=== PATIENT | male | born 1980 | race Caucasian/White ===

== ENCOUNTER 2019-01-21 08:57 | Inpatient (IN) | payer OTHER ==
[~2019-01-21] VITALS: Ht 167.6 cm; Wt 74.8 kg
[2019-01-21] MEDS ORDERED: RENVELA (09:13)
[2019-01-21] MEDS ORDERED: DIPH50CA37 PO (09:13)
[2019-01-21] MEDS ORDERED: CLON0.1T PO (09:13)
[2019-01-21] MEDS ORDERED: NIFE10CA2 PO (09:13)
[2019-01-21] MEDS ORDERED: ASPI81TA31 PO (09:13)
[2019-01-21] MEDS ORDERED: diphenhydrAMINE 50 MG/1 ML VIAL IV ONE ×2 (09:30→10:15)
[2019-01-21] MEDS ORDERED: HYDROMORPHONE 1 MG/1 ML DISP.SYRIN IV ONE ×2 (09:30→10:15)
[2019-01-21] MEDS ORDERED: ONDANSETRON 4 MG/2 ML VIAL IV ONE (09:30)
[2019-01-21] MEDS ORDERED: IV NORMAL SALINE 500 ML BAG IV ONE (09:30)
[2019-01-21] MEDS ORDERED: HYDROMORPHONE 2 MG/1 ML DISP.SYRIN ONE (09:33)
[2019-01-21] MEDS ORDERED: ONDANSETRON 4 MG/2 ML VIAL ONE (09:34)
[2019-01-21 09:35] LABS: BASOPHILS % (AUTO) 0.4 % (0.0-2.0); EOSINOPHILS # (AUTO) 0.1 K/uL (0.0-0.7); EOSINOPHILS % (AUTO) 2.2 % (0.0-7.0); HEMATOCRIT 27.2 % (36.7-47.1); LYMPHOCYTES # (AUTO) 0.3 K/uL (20.0-40.0); LYMPHOCYTES % (AUTO) 4.7 % (20.5-51.5); MEAN CORPUSCULAR HEMOGLOBIN 30.2 uug (23.8-33.4); MEAN CORPUSCULAR HGB CONC 33 g/dL (32.5-36.3); MEAN CORPUSCULAR VOLUME 91.5 fL (73.0-96.2); MONOCYTES # (AUTO) 0.6 K/uL (2.0-10.0); MONOCYTES % (AUTO) 9.6 % (0.0-11.0); NEUTROPHILS # (AUTO) 5.3 K/uL (1.8-8.9); NEUTROPHILS % (AUTO) 83.1 % (38.5-71.5); PLATELET COUNT (AUTO) 139 K/uL (152-348); RED BLOOD CELL COUNT(AUTO) 2.97 MIL/uL (4.06-5.63); WHITE BLOOD COUNT (AUTO) 6.4 K/uL (3.6-10.2)
[2019-01-21] MEDS ORDERED: diphenhydrAMINE 50 MG/1 ML VIAL ONE ×2 (09:40→10:10)
[2019-01-21 09:44] LABS: CARBON DIOXIDE 26 mmol/L (21-32); CHLORIDE 94 mmol/L (98-107); GLUCOSE 93 mg/dL (74-106); POTASSIUM 5.4 mmol/L (3.5-5.1); UREA NITROGEN, BLOOD 36 mg/dL (7-18)
[2019-01-21 09:45] LABS: CREATININE 11.2 mg/dL (0.6-1.3)
--- NOTE | 2019-01-21 09:48 | NUR ---
pt is in room #1b. dr Gerardo evaluated the pt.
[2019-01-21 09:57] LABS: ALANINE AMINOTRANSFERASE 25 U/L (16-63); ALKALINE PHOSPHATASE 82 U/L (50-136); ASPARTATE AMINOTRANSFERASE 21 U/L (15-37); BILIRUBIN,DIRECT 0.2 mg/dL (0.0-0.2); BILIRUBIN,TOTAL 0.3 mg/dL (0.2-1.0)
[2019-01-21] MEDS ORDERED: HYDROMORPHONE 1 MG/1 ML DISP.SYRIN ONE (10:10)
[2019-01-21] MEDS ORDERED: LABETALOL HCL 100 MG/20 ML VIAL IV ONE (10:15)
[2019-01-21] MEDS ORDERED: LABETALOL HCL 100 MG/20 ML VIAL ONE (10:18)
[2019-01-21] MEDS ORDERED: HYDR100T27 PO (10:48)
[2019-01-21] MEDS ORDERED: ATOR20TA PO (10:48)
[2019-01-21] MEDS ORDERED: VIT1TABL46 PO (10:48)
[2019-01-21] MEDS ORDERED: DICY20TA11 PO (10:48)
[2019-01-21] MEDS ORDERED: ISOS30TA6 PO (10:48)
[2019-01-21] MEDS ORDERED: BENA20TA9 PO (10:48)
[2019-01-21] MEDS ORDERED: ONDA8TAB6 PO (10:48)
[2019-01-21] MEDS ORDERED: NIFE90TA38 PO (10:48)
[2019-01-21] MEDS ORDERED: TRAM50TA2 PO (10:48)
[2019-01-21] MEDS ORDERED: LABETALOL HCL 100 MG/20 ML VIAL IV PRN (11:00)
--- NOTE | 2019-01-21 11:05 | NUR ---
pt was transfered to room #319. report was given to ornamental iron worker apprentice.
--- NOTE | 2019-01-21 11:15 | NUR ---
RECEIVED FROM ER BP 205/141--93--18..E3INT=37% ON ROOM AIR. PT. C/O CHEST AND ABD. PAIN. RECHECK OF V/S= BP 203/134-96-20 DR. PRETTY HERE--NOTIFIED OF BP ORDERED NITROPASTE. 1120 NITRO PASTE 2 INCHES APPLIED TO CHEST. 1140 BP 239/135--96--20 1145 RECHECK 214/123--97--20 95% 1155 BP 239/135--94--20. PT. C/O CHEST PAIN DR. MATIAS CALLED FOR ADDITIONAL ORDERS 1200 APRESOLINE 100 MG GIVEN PO--PER ORDER 1210 DR. MATIAS CALLED BP 209/137--97--20 PT. VERY ANXIOUS ASKING FOR DILAUDID IV [STATES THEY ALWAYS GIVE ME DILAUDID WHEN I NEED IT.] 1220 BENADRYL 50 MG GIVEN IV PER ORDER. PT. STILL C/O CHEST PAIN AND ASKING FOR DILAUDID DR. MATIAS NOTIFIED NITROGLYCERIN GIVEN PER ORDER SL. PT. TRANSFERRED TO CCU. EKG DONE AT 1200 AND O2 AT 4L STARTED. REPORT GIVEN TO CCU MAURO
[2019-01-21] MEDS ORDERED: EPOETIN ALFA 10,000 UNITS/ML VIAL SQ ONE (11:30)
[2019-01-21] MEDS ORDERED: NITROGLYCERIN OINT 1 GM PACKET TP PRN (11:45)
[2019-01-21 12:00] VITALS: BP 203/134
[2019-01-21] MEDS ORDERED: hydrALAZINE HCL 50 MG TABLET PO STA (12:07)
[2019-01-21] MEDS ORDERED: diphenhydrAMINE 50 MG/1 ML VIAL IV PRN (12:30)
[2019-01-21 12:40] VITALS: BP 194/142
--- NOTE | 2019-01-21 12:40 | NUR ---
Spoke with Dr. Landeros and gave him report orders for nitrogycerin drip received.
[2019-01-21] MEDS ORDERED: NITROGLYCERIN 0.4 MG/TAB BOTTLE SL PRN (12:45)
--- NOTE | 2019-01-21 12:45 | NUR ---
At this time pt. removing himself from monitoring, blood pressure cuff and threatening to leave AMA if Dr. does not agree to given him dilaudid as other hospital do. Dr. Landeros informed and pt. persuaded to stay educated on consequences of not treating high SBP.
--- NOTE | 2019-01-21 12:47 | NUR ---
RECEIVING PATIENT POST RAPID RESPONSE. HYPERTENSION, AND C/O CHEST PAIN. 1 NITRO GIVEN ON MEDICAL FLOOR 2ND DOSE GIVEN IN CCU. RECEIVING REPORT FROM ANDRE WADE.
--- NOTE | 2019-01-21 12:55 | NUR ---
Orders for dilaudid 1 mg IV Q3H received from attending physician.
[2019-01-21] MEDS ORDERED: NITROGLYCERIN IV 250 ML IV PRN (13:00)
[2019-01-21] MEDS ORDERED: hydrALAZINE HCL 50 MG TABLET PO SCH (13:00)
--- NOTE | 2019-01-21 13:00 | NUR ---
Patient informed that order dilaudid orders and at this time demanding medication to be higher dose and to be ready at this very moment. Patient educated on phamacy verification, before medication administration. Patient one more time removing himself from monitoring threatening to leave AMA to other hospitals that will as stated by Him "will treat my pain and dialyse me only" , patient also stating that He's paying for and nurses salary but he's not receiving the proper treatment. Patient using obscene language in Welsh to express his statements. Braider Operator notified.
--- NOTE | 2019-01-21 13:05 | NUR ---
Upon arrival 2nd dose of nitroglycerin sublingual given, but patient refusing medication. Vehicle Technician at bedside and she was able to convince him to take the second dose of nitroglycerin drip.
[2019-01-21] MEDS ORDERED: HYDROMORPHONE 1 MG/1 ML DISP.SYRIN IV PRN (13:15)
--- NOTE | 2019-01-21 13:30 | NUR ---
Attending physician notified that pt. left AMA despite been educated on HTN crisis. Wireless Sales Representative informed as well.
== END 2019-01-21 13:20 | disposition left against medical advice (07) | DRG 241 ==
LOC: ER 08:58 → TELE3 10:41 → CCU 12:39
PROVIDERS: ADMIT Internal Medicine; ATTEND Internal Medicine
DX: K29.70 Gastritis, unspecified, without bleeding (principal); I13.2 Hypertensive heart and chronic kidney disease with heart failure and with stage 5 chronic kidney disease, or end stage renal disease; D69.6 Thrombocytopenia, unspecified; I24.9 Acute ischemic heart disease, unspecified; N18.6 End stage renal disease; E87.1 Hypo-osmolality and hyponatremia; E87.5 Hyperkalemia; K21.9 Gastro-esophageal reflux disease without esophagitis; Z99.2 Dependence on renal dialysis; I44.4 Left anterior fascicular block; L29.9 Pruritus, unspecified; I70.0 Atherosclerosis of aorta; R07.2 Precordial pain; D53.9 Nutritional anemia, unspecified; Z95.810 Presence of automatic (implantable) cardiac defibrillator; Z79.899 Other long term (current) drug therapy; Z88.0 Allergy status to penicillin; Z79.82 Long term (current) use of aspirin; I50.9 Heart failure, unspecified
CPT/HCPCS: 36415; 70030-TC; 71045; 83690; 85025; 85730; 93005; 94640; A4663; G0378; J1170; J1200; J2405; J3490; J7030; J7040

== ENCOUNTER 2019-01-28 11:20 | Inpatient (IN) | payer OTHER ==
[2019-01-28] VITALS (8 sets, daily range): BP systolic 171–208; BP diastolic 98–139
[~2019-01-28] VITALS: Ht 167.6 cm; Wt 74.4 kg
[~2019-01-28 11:20] MED LIST: ASPI81TA31 PO; ATOR20TA PO; BENA20TA9 PO; CLON0.1T PO; DICY20TA11 PO; DIPH50CA37 PO; HYDR100T27 PO; ISOS30TA6 PO; NIFE90TA38 PO; ONDA8TAB6 PO; TRAM50TA2 PO; VIT1TABL46 PO
[2019-01-28] MEDS ORDERED: HYDROMORPHONE 1 MG/1 ML DISP.SYRIN IV ONE ×3 (11:45→14:00)
[2019-01-28] MEDS ORDERED: ONDANSETRON 4 MG/2 ML VIAL IV ONE ×2 (11:45→13:00)
--- NOTE | 2019-01-28 11:46 | NUR ---
PT IS IN ROOM #2A. DR HUGHES EVALUATED THE PT.
[2019-01-28 11:54] LABS: BASOPHILS % (AUTO) 0.5 % (0.0-2.0); EOSINOPHILS # (AUTO) 0.2 K/uL (0.0-0.7); EOSINOPHILS % (AUTO) 3.5 % (0.0-7.0); HEMATOCRIT 28.7 % (36.7-47.1); HEMOGLOBIN 9.5 g/dL (12.5-16.3); LYMPHOCYTES # (AUTO) 0.3 K/uL (20.0-40.0); LYMPHOCYTES % (AUTO) 5.5 % (20.5-51.5); MEAN CORPUSCULAR HEMOGLOBIN 30.1 uug (23.8-33.4); MEAN CORPUSCULAR HGB CONC 33 g/dL (32.5-36.3); MEAN CORPUSCULAR VOLUME 90.6 fL (73.0-96.2); MONOCYTES # (AUTO) 0.5 K/uL (2.0-10.0); MONOCYTES % (AUTO) 9.6 % (0.0-11.0); NEUTROPHILS # (AUTO) 4.3 K/uL (1.8-8.9); NEUTROPHILS % (AUTO) 80.9 % (38.5-71.5); PLATELET COUNT (AUTO) 198 K/uL (152-348); RED BLOOD CELL COUNT(AUTO) 3.17 MIL/uL (4.06-5.63); WHITE BLOOD COUNT (AUTO) 5.4 K/uL (3.6-10.2)
[2019-01-28 12:04] LABS: POTASSIUM 5.5 mmol/L (3.5-5.1)
[2019-01-28 12:05] LABS: CREATININE 12.2 mg/dL (0.6-1.3)
[2019-01-28 12:10] LABS: BILIRUBIN,DIRECT 0.1 mg/dL (0.0-0.2); BILIRUBIN,TOTAL 0.3 mg/dL (0.2-1.0); TOTAL PROTEIN, SERUM 7.2 g/dL (6.4-8.2)
[2019-01-28] MEDS ORDERED: ASPIRIN 325 MG TABLET PO ONE (12:15)
[2019-01-28] MEDS ORDERED: HYDROMORPHONE 1 MG/1 ML DISP.SYRIN ONE ×3 (12:23→14:05)
[2019-01-28] MEDS ORDERED: ONDANSETRON 4 MG/2 ML VIAL ONE ×2 (12:23→12:54)
[2019-01-28] MEDS ORDERED: hydrALAZINE HCL 20 MG/1 ML VIAL IV ONE ×2 (12:30→14:00)
[2019-01-28] MEDS ORDERED: hydrALAZINE HCL 20 MG/1 ML VIAL ONE ×2 (12:42→14:05)
[2019-01-28] MEDS ORDERED: ASPIRIN 325 MG TABLET ONE (12:44)
[2019-01-28] MEDS ORDERED: diphenhydrAMINE 50 MG/1 ML VIAL ONE (13:21)
[2019-01-28] MEDS ORDERED: diphenhydrAMINE 50 MG/1 ML VIAL IV ONE (13:30)
[2019-01-28] MEDS ORDERED: LABETALOL HCL 100 MG/20 ML VIAL ONE (13:36)
[2019-01-28] MEDS ORDERED: LABETALOL HCL 100 MG/20 ML VIAL IV ONE (13:45)
--- NOTE | 2019-01-28 14:03 | NUR ---
PT IS IN BED. NO S/S OF ACUTE DISTRESS AT THIS TIME. CONTINUE TO MONITOR THE PT.
[2019-01-28] MEDS ORDERED: ONDANSETRON 4 MG/2 ML VIAL IV PRN (14:30)
[2019-01-28] MEDS ORDERED: NITROGLYCERIN 0.4 MG/TAB BOTTLE SL PRN (14:30)
[2019-01-28] MEDS ORDERED: Z GUARD REMEDY PASTE 57 GM TUBE TOP PRN (14:30)
[2019-01-28] MEDS ORDERED: NIFEdipine XL 30 MG TABSR PO SCH (14:30)
[2019-01-28] MEDS ORDERED: HYDROCODONE/APAP 5-325MG TABLET PO PRN (14:30)
[2019-01-28] MEDS ORDERED: ACETAMINOPHEN 325 MG TABLET PO PRN (14:30)
[2019-01-28] MEDS ORDERED: MAGNESIUM HYDROXIDE 30 ML LIQUID UDC PO PRN (14:30)
[2019-01-28] MEDS ORDERED: NIFEdipine XL 30 MG TABSR PO ONE (14:31)
--- NOTE | 2019-01-28 15:45 | NUR ---
Full telephone SBAR report received by MAURO Salinas.
--- NOTE | 2019-01-28 16:01 | NUR ---
Pt received from ER. VSS wnl. Alert and oriented. Addendum: 01/28/19 at 1751 by SAEED MENDIOLA RN Pt noted to be tachy HR 120's upon admission. already aware. Addendum: 01/28/19 at 1844 by SAEED MENDIOLA RN Disregard VSS wnl (previous note). Pt with SBP 170's upon admission. already aware.
--- NOTE | 2019-01-28 16:13 | NUR ---
REPORT WAS GIVEN TO TETRYL BLENDER OPERATOR. PT WAS TRANSFERED TO CCU ROOM #4.
[2019-01-28] MEDS ORDERED: diphenhydrAMINE 50 MG/1 ML VIAL IV PRN (16:45)
[2019-01-28] MEDS: MORPHINE SULFATE 2 MG/1 ML DISP.SYRIN IV PRN ×2 (16:51→19:34)
[2019-01-28] MEDS ORDERED: CLONIDINE HCL 0.2 MG TABLET PO SCH (17:00)
[2019-01-28] MEDS ORDERED: CLONIDINE HCL 0.1 MG TABLET PO SCH (17:00)
[2019-01-28] MEDS ORDERED: DICYCLOMINE HCL 20 MG TABLET PO SCH (17:00)
[2019-01-28] MEDS ORDERED: hydrALAZINE HCL 20 MG/1 ML VIAL IV PRN (19:15)
--- NOTE | 2019-01-28 19:30 | NUR ---
Report received. Patient is MICAH status. AAO speaks mostly Divehi but able to communicate needs with few words of Guamanian. Scratching all over. "Itchy, itchy!" Patient c/o chest and abdominal pain 06/17. Informed that Benadryl was given at almost 5 pm ."Dilaudid, Dilaudid!" patient states. Informed he's on Morphine IV and medication will be given according to doctor's order. Respirations regular non labored. Skin warm and dry. Seen by Dr. Kraft. Ordered CT of abdomen, but no Dilaudid.
--- NOTE | 2019-01-28 19:34 | NUR ---
New IV inserted to ROSARIO; previous IV clotted. Medicated with Morphine IV.
--- NOTE | 2019-01-28 19:59 | NUR ---
C/o nausea. Medicated with Zofran IV.
--- NOTE | 2019-01-28 20:13 | NUR ---
Hydralazine 10 mg IV given. GQ=244/94. Patient denies headaches or dizziness. Monitored closely.
--- NOTE | 2019-01-28 20:35 | NUR ---
Dr. Kraft notified that patient remains hypertensive and with generalized itchiness and Benadryl is not due till 2300. No further medications for now as per MD until CT scan of abdomen is completed and resulted.
[2019-01-28] MEDS ORDERED: NIFEdipine XL 90 MG TABSR PO STA (20:42)
--- NOTE | 2019-01-28 20:50 | NUR ---
Spoke to Dr. Kraft again; patient remains hypertensive and patient uttering "Nifidipine"
--- NOTE | 2019-01-28 20:51 | NUR ---
Nifedipine XL [address] byrne tech Hugo aware of CT order.
[2019-01-28] MEDS ORDERED: ATORVASTATIN 20 MG TABLET PO SCH (21:00)
--- NOTE | 2019-01-28 21:30 | NUR ---
To CT scan with continuous monitoring.
--- NOTE | 2019-01-28 21:50 | NUR ---
Back from CT; NAD noted but continues to scratch all over. Removing monitor leads and dressing to R subclavian Jesus cath. Patient advised.
[2019-01-28] MEDS ORDERED: hydrALAZINE HCL 50 MG TABLET PO SCH (22:00)
[2019-01-28] MEDS ORDERED: hydrALAZINE HCL 25 MG TABLET PO SCH (22:00)
--- NOTE | 2019-01-28 22:09 | NUR ---
Patient very agitated, restless, continue to scratch all over, threatening to leave despite explanation. "Doctor no good!" "I'm itchy, itchy!" Remains hypertensive; advised appropriately. Took po meds Lipitor and Hydralazine (Patient was kept NPO for CT procedure) Drum Tender notified. Results of CT scan called to Dr. Kraft; informed of patient's condition and agitation. MD stated no more Benadryl but ordered Morphine Q6H for pain. Also informed of patient wanting to leave against medical advice.
--- NOTE | 2019-01-28 22:10 | NUR ---
Adhesive Primer Maria R and Croatian speaking night guard here to help as adult secondary education instructor. Patient informed of MD's orders of no more Benadryl. Patient dressed up and wants to leave the hospital. Refused to sign appropriate document for leaving against medical advice.
--- NOTE | 2019-01-28 22:20 | NUR ---
Patient left CCU ambulatory against medical advice.
[2019-01-29] MEDS ORDERED: ASPIRIN 81 MG TAB.CHEW PO SCH (09:00)
[2019-01-29] MEDS ORDERED: ISOSORBIDE MONONITRATE 30 MG TAB.SR.24H PO SCH (09:00)
[2019-01-29] MEDS ORDERED: NIFEdipine XL 90 MG TABSR PO SCH (09:00)
[2019-01-29] MEDS ORDERED: BENAZEPRIL HCL 10 MG TABLET PO SCH (09:00)
[2019-01-29] MEDS ORDERED: BENAZEPRIL HCL 20 MG TABLET PO SCH (09:00)
--- NOTE | 2019-02-03 07:38 | NUR ---
INFORMATION SENT: ROMARIO TINOCO INSURANCE NAME[facility] FAX NUMBER: FAX SENT
== END 2019-01-28 22:20 | disposition left against medical advice (07) | DRG 190 ==
LOC: ER 11:20 → CCU 15:26
DX: I21.4 Non-ST elevation (NSTEMI) myocardial infarction (principal); E87.1 Hypo-osmolality and hyponatremia; I12.0 Hypertensive chronic kidney disease with stage 5 chronic kidney disease or end stage renal disease; N18.6 End stage renal disease; E87.5 Hyperkalemia; Z99.2 Dependence on renal dialysis; I51.7 Cardiomegaly; Z95.810 Presence of automatic (implantable) cardiac defibrillator; D64.9 Anemia, unspecified; Z79.899 Other long term (current) drug therapy; Z79.82 Long term (current) use of aspirin; R10.9 Unspecified abdominal pain; Z76.5 Malingerer [conscious simulation]
CPT/HCPCS: 36415; 70030-TC; 71045; 83605; 83690; 85025; 93005; 93307; A4663; G0378; J0360; J1170; J1200; J2270; J2405; J3490

== ENCOUNTER 2019-02-04 16:00 | Emergency (ER) | payer OTHER ==
[~2019-02-04] VITALS: Ht 170.2 cm; Wt 74.1 kg
[2019-02-04] MEDS ORDERED: ONDANSETRON ODT 4 MG TAB.RAPDIS SL ONE (16:15)
--- NOTE | 2019-02-04 16:20 | NUR ---
PT IS IN ROOM #2A. DR HUTCHINS EVALUATED THE PT.
[2019-02-04 16:25] LABS: BASOPHILS % (AUTO) 0.5 % (0.0-2.0); EOSINOPHILS # (AUTO) 0.1 K/uL (0.0-0.7); EOSINOPHILS % (AUTO) 2.2 % (0.0-7.0); HEMATOCRIT 27.9 % (36.7-47.1); HEMOGLOBIN 9.2 g/dL (12.5-16.3); LYMPHOCYTES # (AUTO) 0.4 K/uL (20.0-40.0); LYMPHOCYTES % (AUTO) 5.4 % (20.5-51.5); MEAN CORPUSCULAR HGB CONC 33 g/dL (32.5-36.3); MEAN CORPUSCULAR VOLUME 90.6 fL (73.0-96.2); MONOCYTES # (AUTO) 0.8 K/uL (2.0-10.0); MONOCYTES % (AUTO) 12.5 % (0.0-11.0); NEUTROPHILS # (AUTO) 5.2 K/uL (1.8-8.9); NEUTROPHILS % (AUTO) 79.4 % (38.5-71.5); PLATELET COUNT (AUTO) 219 K/uL (152-348); RED BLOOD CELL COUNT(AUTO) 3.08 MIL/uL (4.06-5.63); WHITE BLOOD COUNT (AUTO) 6.5 K/uL (3.6-10.2)
[2019-02-04] MEDS ORDERED: ONDANSETRON ODT 4 MG TAB.RAPDIS ONE (16:25)
[2019-02-04 16:39] LABS: POTASSIUM 4.9 mmol/L (3.5-5.1)
[2019-02-04 16:43] LABS: CREATININE 12.2 mg/dL (0.6-1.3)
[2019-02-04 16:44] LABS: BILIRUBIN,DIRECT 0.1 mg/dL (0.0-0.2); BILIRUBIN,TOTAL 0.3 mg/dL (0.2-1.0)
[2019-02-04] MEDS ORDERED: diphenhydrAMINE 25 MG CAP PO ONE ×2 (16:45→16:48)
[2019-02-04] MEDS ORDERED: HYDROMORPHONE 1 MG/1 ML DISP.SYRIN IM ONE (16:45)
[2019-02-04] MEDS ORDERED: HYDROMORPHONE 1 MG/1 ML DISP.SYRIN ONE (16:47)
--- NOTE | 2019-02-04 16:59 | NUR ---
PT REFUSED FURTHER TREATMENT AND ELOPED. DR HUTCHINS WAS NOTIFIED. BARN WORKER ROSEMARIE NOTIFIED.
== END 2019-02-04 17:08 | disposition left against medical advice (07) ==
LOC: ER 16:00
DX: N18.6 End stage renal disease (principal); D64.9 Anemia, unspecified; Z99.2 Dependence on renal dialysis; Z95.0 Presence of cardiac pacemaker; Z88.0 Allergy status to penicillin; Z88.8 Allergy status to other drugs, medicaments and biological substances; Z79.82 Long term (current) use of aspirin; Z79.899 Other long term (current) drug therapy
CPT/HCPCS: 36415; 80048; 80076; 83690; 85025; 85730; 93005; 96372; 99284; J1170; Q0163; A4663; Q0162

== ENCOUNTER 2019-02-28 13:24 | Emergency (ER) | payer OTHER ==
[~2019-02-28] VITALS: Ht 167.6 cm; Wt 70.3 kg
[2019-02-28 14:25] LABS: BASOPHILS % (AUTO) 0.5 % (0.0-2.0); EOSINOPHILS # (AUTO) 0.3 K/uL (0.0-0.7); EOSINOPHILS % (AUTO) 4.3 % (0.0-7.0); HEMATOCRIT 30.2 % (36.7-47.1); HEMOGLOBIN 9.8 g/dL (12.5-16.3); LYMPHOCYTES # (AUTO) 0.5 K/uL (20.0-40.0); LYMPHOCYTES % (AUTO) 6.4 % (20.5-51.5); MEAN CORPUSCULAR HEMOGLOBIN 29.7 uug (23.8-33.4); MEAN CORPUSCULAR HGB CONC 33 g/dL (32.5-36.3); MEAN CORPUSCULAR VOLUME 91.1 fL (73.0-96.2); MONOCYTES # (AUTO) 0.6 K/uL (2.0-10.0); NEUTROPHILS # (AUTO) 6.2 K/uL (1.8-8.9); NEUTROPHILS % (AUTO) 80.8 % (38.5-71.5); PLATELET COUNT (AUTO) 202 K/uL (152-348); RED BLOOD CELL COUNT(AUTO) 3.31 MIL/uL (4.06-5.63); WHITE BLOOD COUNT (AUTO) 7.7 K/uL (3.6-10.2)
[2019-02-28 14:41] LABS: CREATININE 14.7 mg/dL (0.6-1.3); POTASSIUM 6.3 mmol/L (3.5-5.1)
[2019-02-28 14:42] LABS: BILIRUBIN,DIRECT 0.1 mg/dL (0.0-0.2); BILIRUBIN,TOTAL 0.3 mg/dL (0.2-1.0); TOTAL PROTEIN, SERUM 7.3 g/dL (6.4-8.2)
[2019-02-28] MEDS ORDERED: PANTOPRAZOLE SODIUM 40 MG VIAL IV ONE (14:45)
[2019-02-28 15:14] VITALS: BP 162/98
== END 2019-02-28 14:50 | disposition left against medical advice (07) ==
LOC: ER 13:24
DX: R10.9 Unspecified abdominal pain (principal); R19.7 Diarrhea, unspecified; E87.5 Hyperkalemia; I12.0 Hypertensive chronic kidney disease with stage 5 chronic kidney disease or end stage renal disease; N18.6 End stage renal disease; Z99.2 Dependence on renal dialysis; Z95.0 Presence of cardiac pacemaker; Z88.0 Allergy status to penicillin; Z88.8 Allergy status to other drugs, medicaments and biological substances; Z79.82 Long term (current) use of aspirin; Z79.899 Other long term (current) drug therapy
CPT/HCPCS: 36415; 70030-TC; 71045; 83690; 85025; 85730; 93005; A4663